=== PATIENT | female | born 1995 | race Caucasian/White ===

== ENCOUNTER 2018-09-14 14:00 | Emergency (ER) | payer MEDICAID, SELFPAY ==
[2018-09-14 14:05] VITALS: BP 113/73; PULSE 84; RESP 16; TEMP 36.6; O2SAT 98
--- NOTE | 2018-09-14 14:12 | W.ED.GENAD ---
Discharge Plan Disposition Patient Disposition: HOME Condition: Good Discharge Details Chief Complaint: RespSymp Clinical Impression: Congestion of nasal sinus, URI (upper respiratory infection) Primary Care Provider: Scottie Kimbrough ED Provider: Donovan Dow Home Meds and New Rx's Prescriptions: New fluticasone furoate 27.5 mcg/actuation spray,suspension 2 spray ALEJANDRA DAILY Qty: 9.1 RF: 0 loratadine [Claritin] 10 mg tablet 10 mg PO DAILY Qty: 20 RF: 0 amoxicillin 500 mg capsule 500 mg PO BID Qty: 20 RF: 0 Discharge Instructions Instructions: Upper Respiratory Infection (ED) Additional Instructions: Please take the nasal spray, and the Claritin as directed. Please continue to use your home [place] pot as often as possible. Please hold off on taking the antibiotic unless you do not notice improvement of your symptoms over the next 48 hours. If you notice any worsening of your symptoms, or any new symptoms such as vomiting, diarrhea, fever, chills, shortness of breath, chest pain, numbness, weakness, or fainting , please return immediately to the emergency department for reevaluation. Please follow up with your primary care provider as soon as possible for reassessment and reevaluation. As always, it was a pleasure participating in your medical care today. Referrals: Scottie Kimbrough PA [Primary Care Provider] - Medical Decision Making This is a pleasant 22-year-old male who presents with signs and symptoms consistent for sinusitis and mild upper respiratory infection. She has mild cough that only occurred today, as well as congestion in her nose. Minimal sore throat, no difficulty swallowing whatsoever. No fever or chills. Physical exam demonstrates no significant redness in the oropharynx, strep test was questionably positive with an extremely thin and difficult to see line. However I feel that her signs and symptoms are inconsistent with notable strep throat. She may very well be a carrier. Lung sounds are clear, vital signs are reassuring. Her signs and symptoms are clinically inconsistent with community-acquired pneumonia, peritonsillar abscess, venous sinus thrombosis. Signs and symptoms are consistent with mild sinusitis. We will prescribe an antibiotic, however with the recommendation that she hold off and that she does not have resolution of her symptoms in the next 24-48 hours as I feel her signs and symptoms more likely consistent with a viral etiology. We discussed red flags which to return the patient understands. I have extensively reviewed the treatment plan and discharge instructions with the patient. I have addressed all patient concerns at this time. The patient was made aware of what symptoms to monitor for that would warrant a return to the emergency department. Discussed the plan with the patient, they demonstrate verbal understanding and agreement with our assessment and plan at this time. HPI General Date/Time Provider Initiated Documentation: 09/14/18 14:03. HPI Narrative: This is a 22-year-old female with no past medical history except for chronic sinus infections who presents today for evaluation of nasal congestion. She states it is been going on for the last 2 weeks. She denies any tobacco use. She does use an occasional [place] pot but has not for quite some time. This morning she noticed that she had some mild associated cough when she woke up but this is resolved. She admits to minimal pressure in the front of her face. Some congestion in her nose. She denies any systemic symptoms of fever chills vomiting diarrhea chest pain shortness of breath numbness tingling or weakness. She denies any IV or illicit drug use. She denies any history of HIV. She denies any modifying or relieving factors. She has no other additional complaints at this time. Patient denies any recent surgeries. Related Data Home Medications Medication Instructions Recorded Confirmed amoxicillin 500 mg PO BID #20 cap 09/14/18 fluticasone furoate 2 spray ALEJANDRA DAILY #9.1 ml 09/14/18 loratadine [Claritin] 10 mg PO DAILY #20 tab 09/14/18 Previous Rx's Medication Instructions Recorded amoxicillin 500 mg PO BID #20 cap 09/14/18 fluticasone furoate 2 spray ALEJANDRA DAILY #9.1 ml 09/14/18 loratadine [Claritin] 10 mg PO DAILY #20 tab 09/14/18 Allergies Allergy/AdvReac Type Severity Reaction Status Date / Time No Known Allergies Allergy Unverified 09/14/18 14:16 General Stated Complaint: RespSymp IGNACIO: 4 Review of Systems Review of Systems All systems reviewed & are unremarkable except as noted in HPI and below PFSH Social History Smoking/Tobacco Use Status: Never Exam Narrative Exam Narrative: 1.Const: Well-nourished, Well-developed, appearing stated age 2.Eyes: PERRL, no conjunctival injection, and symmetrical lids. 3.ENT: Atraumatic external nose and ears. Moist MM. Neck: Symmetric, trachea midline, No thyromegaly. Minimal cerumen in the ear canals bilaterally. Minimal tenderness on percussion of the maxillary sinuses. Mild congestion in the nares. No erythema in the posterior oropharynx, no evidence of tonsillar exudates, tender anterior cervical lymphadenopathy, mass, peritonsillar abscess, or other significant abnormality. No signs of airway compromise. 4.CVS: +S1/S2, No murmurs or gallops. Peripheral pulses 2+ and equal in all extremities. Brisk capillary refill in all extremities. 5.RESP: Unlabored respiratory effort. Clear to auscultation bilaterally. No wheezes rales or rhonchi 6.GI: Soft, Nontender/Nondistended, No hepatosplenomegaly. No guarding or rebound. 7.MSK: Normocephalic/Atraumatic, Extremities w/o deformity or ttp No cyanosis or clubbing, Normal movement of all extremities 8.Skin: Warm, Dry. No rashes or lesions. 9.Neuro: sales representative II-XII grossly intact. Sensation grossly intact, no focal neurologic deficits. 10.Psych: (AAO) x3. Appropriate mood and affect Course Vital Signs Temperature 36.6 C 09/14/18 14:05 Pulse 84 09/14/18 14:05 Respiratory Rate 16 09/14/18 14:05 Blood Pressure 113/73 09/14/18 14:05 Pulse Oximetry 98 09/14/18 14:05 Temperature 36.6 C 09/14/18 14:05 Temperature Source Temporal Artery Scan 09/14/18 14:05 Pulse 84 09/14/18 14:05 Respiratory Rate 16 09/14/18 14:05 Blood Pressure 113/73 09/14/18 14:05 Blood Pressure Position Sitting 09/14/18 14:05 Pulse Oximetry 98 09/14/18 14:05 Oxygen Delivery Method Room Air 09/14/18 14:05 Oxygen Flow Rate 0 09/14/18 14:05 Pain Level 0 09/14/18 14:05
== END 2018-09-14 14:50 | disposition home or self-care (01) ==
PROVIDERS: Emergency Provider Student in an Organized Health Care Education/Training Program; PCP Physician Assistant Medical
DX: J06.9 Acute upper respiratory infection, unspecified (principal)
CPT/HCPCS: 87880; 99282

== ENCOUNTER 2018-11-24 07:24 | Emergency (ER) | payer MEDICAID, SELFPAY ==
[2018-11-24 07:32] VITALS: BP 109/83; PULSE 84; RESP 16; TEMP 36.7; O2SAT 100
--- NOTE | 2018-11-24 08:07 | ED.GENADUL_ITS ---
Discharge Plan Disposition Patient Disposition: HOME Condition: Improving Discharge Details Chief Complaint: Nausea/Vomit/Diar Clinical Impression: Gastroenteritis Primary Care Provider: Scottie Kimbrough ED Provider: Junior Antonio Home Meds and New Rx's Prescriptions: New ondansetron HCl [Zofran] 4 mg tablet 4 mg PO QID PRN (Reason: nausea and vomiting) Qty: 10 RF: 0 No Action loratadine [Claritin] 10 mg tablet 10 mg PO DAILY Qty: 20 RF: 0 Discharge Instructions Instructions: Gastroenteritis (ED) Additional Instructions: Home to rest today. Small, frequent sips of fluids to maintain hydration. May use Zofran, as prescribed, as needed for nausea. May slowly advance a bland diet. Return if you develop a fever, recurrent/persistent vomiting, abdominal pain, or any other acute concern Medical Decision Making Healthy 23-year-old female presents from home complaining of the abrupt onset of 400 hours of nausea and vomiting with 2 significant episodes of this. There was nonbilious nonbloody emesis. She denied a fever or diarrhea. Some suspicious food contacts at home. Afebrile and well-appearing, dehydrated in appearance. Abdomen exam is benign. IV placed, given antiemetics, screening laboratories obtained and patient given 2 liters of fluid. Lab reassuring without significant abnormality. Patient subsequently had recurrent vomiting and abdominal discomfort, referred for CT which reveals ileal colitis, consistent with her presentation. Please see formal report. Following parenteral fluids, the patient able to take liquids by mouth. Most consistent with a gastroenteritis. Discussed home management, follow-up, return precautions with the patient. Will offer antiemetic for home. She is stable and improved. Lab Data Lab results reviewed: Yes I reviewed the patient's lab results. Laboratory Results - last 24 hr 11/24/18 11/24/18 08:24 08:24 WBC 8.96 RBC 4.23 Hgb 13.2 Hct 38.0 MCV 89.8 MCH 31.2 MCHC 34.7 RDW 12.0 Plt Count 208 MPV 10.0 Immature Gran % 0.1 Neutrophils % 85.2 Lymphocytes % 6.8 Monocytes % 7.4 Eosinophils % 0.4 Basophils % 0.1 Absolute Neutrophils 7.63 H Absolute Lymphocytes 0.61 L Absolute Monocytes 0.66 Absolute Eosinophils 0.04 Absolute Basophils 0.01 Sodium 143 Potassium 3.6 Chloride 105 Carbon Dioxide 29.8 Anion Gap 8.2 BUN 14 Creatinine 0.64 Estimated GFR/1.73 m2 >= 60.00 Glucose 93 Calcium 8.2 L Magnesium 1.6 L Total Bilirubin 1.7 H AST 15 ALT 19 Alkaline Phosphatase 53 Total Protein 7.1 Albumin 4.0 HPI General Mode of arrival: ambulatory . Date/Time Provider Initiated Documentation: 11/24/18 07:45 . Limitations to Documentation: no limitations . Information obtained by: patient . History of Present Illness 23 year old F presents to the emergency department with the chief complaint of Nausea and vomiting 4 hours time; no blood, described as moderate, Quality is described as dull, and is localized to the abdomen. Patient reports no radiation. Patient started experiencing this hour(s) and it has been intermittent. No relieving factors improve symptom(s), No exacerbating factors reported . Patient notes no other symptoms.. Patient did receive the following treatments prior to arrival, none Related Data Home Medications Medication Instructions Recorded Confirmed loratadine [Claritin] 10 mg PO DAILY #20 tab 09/14/18 11/24/18 ondansetron HCl [Zofran] 4 mg PO QID PRN #10 tab 11/24/18 Previous Rx's Medication Instructions Recorded loratadine [Claritin] 10 mg PO DAILY #20 tab 09/14/18 ondansetron HCl [Zofran] 4 mg PO QID PRN #10 tab 11/24/18 Allergies Allergy/AdvReac Type Severity Reaction Status Date / Time No Known Allergies Allergy Unverified 11/24/18 07:41 General Stated Complaint: Nausea/Vomit/Diar IGNACIO: 3 Review of Systems Review of Systems 6 systems reviewed and otherwise negative [facility] Social History Smoking and Tabacco status: Never Exam Narrative Exam Narrative: GEN: awake, alert, oriented 3. Pleasant, well groomed, interactive. HEAD: Normocephalic, atraumatic ENT: Mucous membranes dry, oropharynx unremarkable, External ear exam unremarkable EYES: PERRL, EOMI NECK: Full ROM, no ED, no menigismus CHEST/RESP: Nontender, clear to auscultation bilateral, no wheeze/rhonchi/rales CARDIOVASCULAR: RRR, no murmur, rub shy. 2+ Rad pulse bilateral ABDOMEN: Soft, nontender, no mass. +Bowel sounds EXT: Full ROM, no edema, no rash Neuro: Grossly normal neurologic exam, conversant, interactive. Psych: Speech fluent, thoughts congruent, affect normal Course Vital Signs Temperature 36.7 C 11/24/18 07:32 Pulse 84 11/24/18 07:32 Respiratory Rate 16 11/24/18 07:32 Blood Pressure 109/83 11/24/18 07:32 Pulse Oximetry 100 11/24/18 07:32 Temperature 36.7 C 11/24/18 07:32 Temperature Source Temporal Artery Scan 11/24/18 07:32 Pulse 84 11/24/18 07:32 Respiratory Rate 16 11/24/18 07:32 Respiratory Effort Non-Labored 11/24/18 07:39 Blood Pressure 109/83 11/24/18 07:32 Blood Pressure Position Sitting 11/24/18 07:32 Pulse Oximetry 100 11/24/18 07:32 Oxygen Delivery Method Room Air 11/24/18 07:32 Oxygen Flow Rate 0 11/24/18 07:32 Pain Level 3 11/24/18 07:32
[2018-11-24] MEDS: Normal Saline 1,000 ML 1000 ML IV ×2 (08:24→09:11)
[2018-11-24] MEDS: Ondansetron 4 MG/2 ML VIAL IVP (08:26)
[2018-11-24 08:39] LABS: Abs Immature Grans 0.01 k/cumm (0.0-0.09); Absolute Basophil Count 0.01 k/cumm (0.0-0.2); Absolute Eosinophil Count 0.04 k/cumm (0.0-0.7); Absolute Lymphocyte Count 0.61 k/cumm (1.2-3.4); Absolute Monocyte Count 0.66 k/cumm (0.11-0.7); Absolute Neutrophil Count 7.63 k/cumm (1.2-6.7); Basophils % 0.1; Eosinophils % 0.4; HGB 13.2 g/dL (12.0-15.5); Immature Grans % 0.1; Lymphocytes % 6.8; Mean Corp. HGB Concentration 34.7 g/dL (32.0-36.0); Mean Corpuscular Hemoglobin 31.2 pg (27.0-33.0); Mean Corpuscular Volume 89.8 fL (80-95); Monocytes % 7.4; Neutrophils % 85.2; Platelet Count 208 x1000/uL (130-400); RBC 4.23 m/cumm (4.00-5.20); White Blood Cell Count 8.96 k/cumm (4.4-10.8)
[2018-11-24 08:46] LABS: ALT 19 U/L (12-78); AST 15 U/L (15-37); Alkaline Phosphatase 53 U/L (46-116); Anion Gap 8.2 mmol/L (3-11); BUN 14 mg/dL (7-18); Bilirubin, Total 1.7 mg/dL (0.2-1.0); CO2 29.8 mmol/L (21.0-32.0); CREATININE 0.64 mg/dL (0.55-1.02); Calcium 8.2 mg/dL (8.5-10.1); Chloride 105 mmol/L (98-107); Glucose 93 mg/dL (70-100); Magnesium 1.6 mg/dL (1.8-2.4); Potassium 3.6 mmol/L (3.5-5.1); Sodium 143 mmol/L (136-145); Total Protein 7.1 g/dL (6.4-8.2)
[2018-11-24] MEDS: Ondansetron O.D.T. 4 MG TABEF PO (11:13)
--- NOTE | 2018-11-24 11:55 | DI.CT_ITS ---
SYMPTOMS/DIAGNOSIS: ABDOMINAL PAIN, VOMITING CT OF THE ABDOMEN AND PELVIS: Images were performed from the lung bases through the ischial tuberosities after IV and without oral contrast. The exam is mildly limited by motion. Lung bases are clear. The liver and the gallbladder, spleen, pancreas, kidneys and adrenals are unremarkable. The appendix appears normal. There is fluid in the cecum and distal ileum and a question of mild wall thickening, which could indicate colitis. The transverse colon is unremarkable. There is stool in the descending and rectosigmoid. The bladder, uterus and left ovary are unremarkable. There is an involuting corpus luteum cyst of the right ovary. There is a small amount of fluid in the cul-de-sac and near the right ovary. IMPRESSION: 1. Fluid-filled distal ileum and cecum may indicate colitis and ileitis. 2. Involuting right corpus luteum cyst with adjacent fluid.
[2018-11-24 11:57] VITALS: BP 111/67; PULSE 125; RESP 16; TEMP 36.6; O2SAT 100
[2018-11-24] MEDS: Lactated Ringers 1,000 ML 1000 ML IV (12:07)
[2018-11-24] MEDS: Omnipaque 350 MG/ML 100 ML BTL IV (13:35)
--- NOTE | 2018-11-24 14:14 | DI.VRAD_ITS ---
EXAM: CT Abdomen and Pelvis With Contrast EXAM DATE/TIME: 11/24/2018 11:56 AM CLINICAL HISTORY: 23 years old, female; Signs and symptoms; Other: Abd pain, vomiting TECHNIQUE: Axial computed tomography images of the abdomen and pelvis with intravenous contrast. All CT scans at this facility use at least one of these dose optimization techniques: automated exposure control; mA and/or kV adjustment per patient size (includes targeted exams where dose is matched to clinical indication); or iterative reconstruction. Coronal and sagittal reformatted images were created and reviewed. CONTRAST: Contrast Material: 100 ml of omnipaque 350; Contrast Route: iv COMPARISON: No relevant prior studies available. FINDINGS: Lower thorax: No acute findings. ABDOMEN: Liver: Mild nonspecific periportal edema. Otherwise, the liver is unremarkable. No mass. Gallbladder and bile ducts: Unremarkable.No calcified stones. No ductal dilation. Pancreas: Unremarkable. No ductal dilation. Spleen: Unremarkable. No splenomegaly. Adrenals: Unremarkable. No mass. Kidneys and ureters: Unremarkable. No hydronephrosis. Stomach and bowel: Mild circumferential wall thickening and enhancement involving multiple loops of ileum and the cecum. There is low-density fluid within these abnormal loops of bowel. Moderate amount of solid stool and gas in the distal colon to the rectum. No bowel obstruction or perforation. Appendix: Normal appendix. PELVIS: Bladder: Unremarkable as visualized. Reproductive: 2 cm right ovarian cystic structure with with mildly irregular thickened enhancing wall, typical of a ruptured/involuting corpus luteal cyst. ABDOMEN and PELVIS: Intraperitoneal space: Small amount of free fluid in the right hemipelvis, nonspecific, but usually physiologic in young women and related to ovulation. No abscess. No free air. Bones/joints: No fracture. No dislocation. Soft tissues: Unremarkable. Vasculature: Unremarkable. No abdominal aortic aneurysm. Lymph nodes: Unremarkable. No enlarged lymph nodes. IMPRESSION: 1. Mild inflammatory or infectious ileocolitis. 2. 2 cm probable ruptured/involuting right ovarian corpus luteal cyst. Dictated and Authenticated by: Ema Cordero MD. Ordering:ADRIANA Pacheco MD
[2018-11-24 14:30] VITALS: BP 103/47; PULSE 75; TEMP 37.2; O2SAT 100
[2018-11-24 14:40] VITALS: BP 103/47; PULSE 75; RESP 16; TEMP 37.2; O2SAT 100
== END 2018-11-24 14:42 | disposition home or self-care (01) ==
PROVIDERS: Emergency Provider Emergency Medicine; PCP Physician Assistant Medical
DX: K52.9 Noninfective gastroenteritis and colitis, unspecified (principal)
CPT/HCPCS: 36415; 80053; 81025; 96361; 96365; 96375; 99285; 74177; 83735; 85025; 99284; J2405; J3490

== ENCOUNTER 2018-11-29 11:57 | Outpatient (REF) | payer MEDICAID, SELFPAY ==
[2018-11-29 19:05] LABS: Abs Immature Grans 0.01 k/cumm (0.0-0.09); HCT 36.8 % (36.0-46.0); HGB 12.6 g/dL (12.0-15.5); Mean Corp. HGB Concentration 34.2 g/dL (32.0-36.0); Mean Corpuscular Hemoglobin 30.3 pg (27.0-33.0); Mean Corpuscular Volume 88.5 fL (80-95); Mean Platelet Volume 10.5 fL (8.0-11.0); Platelet Count 196 x1000/uL (130-400); RBC 4.16 m/cumm (4.00-5.20); RBC Distribution Width 11.7 % (11.7-14.6); White Blood Cell Count 2.96 k/cumm (4.4-10.8)
[2018-11-29 19:24] LABS: ALT 22 U/L (12-78); AST 17 U/L (15-37); Albumin 4.1 g/dL (3.4-5.0); Alkaline Phosphatase 46 U/L (46-116); Bilirubin, Total 0.9 mg/dL (0.2-1.0); Total Protein 6.8 g/dL (6.4-8.2)
[2018-11-29 19:40] LABS: Bilirubin, Direct 0.21 mg/dL (0.00-0.20)
[2018-11-29 20:40] LABS: Absolute Neutrophil Count 1.36 k/cumm (1.2-6.7); Atypical Lymphocytes % 5
[2018-11-29 20:41] LABS: Diff Comment Manual Differential; RBC Morphology Normal
== END 2018-11-29 12:17 ==
LOC: NCHCN 11:57
PROVIDERS: PCP Physician Assistant Medical; Visit Provider Physician Assistant Medical
DX: K52.9 Noninfective gastroenteritis and colitis, unspecified (principal); E80.6 Other disorders of bilirubin metabolism
CPT/HCPCS: 80076; 85025

== ENCOUNTER 2019-01-14 10:16 | Outpatient (REF) | payer MEDICAID, SELFPAY ==
--- NOTE | 2019-01-14 | PAPFT_PTH ---
PATIENT: Alivia Sim [id number] AGE/SX: 23/F ROOM: RE01/14/[address]: Scottie Kimbrough : 1995 BED: DIS: 01/14/2019 SPEC #: [id number] RECD: 01/14/19 20:51 STATUS: DEBBIE MARLOW #: [id number] EARNEST: 01/14/19 00:[address]: Scottie Kimbrough DEPT: [facility] Cytology RECD BY: Luana Alcantara Tissues: 1 - CX/ENDOCX FOR PAP SMEARS Procedures: PAP THIN PREP/[facility] Screening Comments: [id number]
[2019-01-14 21:28] LABS: ALT 24 U/L (12-78); AST 17 U/L (15-37); Albumin 4.5 g/dL (3.4-5.0); Alkaline Phosphatase 57 U/L (46-116); Bilirubin, Direct 0.28 mg/dL (0.00-0.20); Bilirubin, Total 1.5 mg/dL (0.2-1.0); Total Protein 7.3 g/dL (6.4-8.2)
[2019-01-16 15:23] LABS: Chlamydia Result Negative; GC Result Negative; Specimen Description CERVIX
== END 2019-01-14 10:36 ==
LOC: NCHCN 10:16
PROVIDERS: PCP Physician Assistant Medical; Visit Provider Physician Assistant Medical
DX: Z11.3 Encounter for screening for infections with a predominantly sexual mode of transmission (principal); Z12.4 Encounter for screening for malignant neoplasm of cervix; E80.6 Other disorders of bilirubin metabolism
CPT/HCPCS: 80076; 87491; 87591; 88142

== ENCOUNTER 2020-08-10 14:54 | Outpatient (REF) | payer MEDICAID, SELFPAY ==
[2020-08-15 14:39] LABS: SARS-CoV-2 RNA Undetected (Undetected); SARS-CoV-2 Specimen Source Nasal
== END 2020-08-10 15:14 ==
LOC: NCHCN 14:54
PROVIDERS: PCP Physician Assistant Medical; Visit Provider Physician Assistant Medical
DX: Z00.8 Encounter for other general examination (principal); Z11.59 Encounter for screening for other viral diseases
CPT/HCPCS: U0003

== ENCOUNTER 2021-03-22 03:29 | Outpatient (CLI) | payer MEDICAID, SELFPAY ==
--- NOTE | 2021-03-22 | DI.RAD_ITS ---
Exam(s) XR CHEST 2V PA LATERAL EXAM: XR CHEST 2V PA LATERAL CLINICAL HISTORY: SOB,R06.02 TECHNIQUE: 2D digital imaging was performed. COMPARISON: No exams were available for comparison FINDINGS: The heart is not enlarged. The lungs are clear and well expanded. No pleural effusion seen. Mediastin al contours appear intact. IMPRESSION: Normal chest. RADIATION DOSE DELIVERED: Total DLP
--- NOTE | 2021-03-22 11:53 | W.PFT ---
Date of service: 03/22/21 Time of Service: 10:08 Pulmonary Function Test Result Interpretation Spirometry: No evidence of obstructive airways disease. No bronchodilator testing was carried out Lung Volumes: No restriction Diffusion Capacity: Borderline mildly reduced, even when corrected to alveolar volume. However this represents a suboptimal patient effort. This could just be an effort related phenomenon. Airway Pressure: Normal Clinical Correlation therefore is recommended.
[2021-03-22] MEDS: Methacholine 100 MG VIAL IH (12:31)
[2021-03-22] MEDS: Albuterol HFA 18 GM 200 PUFF INH IH (12:31)
[2021-03-22] MEDS: Inhaler, Assist Device 1 EACH MC (12:31)
--- NOTE | 2021-03-24 18:36 | W.PFT ---
Date of service: 03/22/21 Time of Service: 10:08 Pulmonary Function Test Result Clinical Correlation therefore is recommended. Methacholine Challnege Test Date of Service Date of Service: . 03/22/2021 Note Good patient effort, after normal spirometry, methacholine challenge testing was carried out up to methacholine concentration of 16 mg/mL. At that point the patient had a 15% drop in FEV1. Impression Negative methacholine challenge
== END 2021-03-22 03:30 | disposition home or self-care (01) ==
LOC: RT 03:32
PROVIDERS: PCP Physician Assistant Medical; Visit Provider Physician Assistant Medical
DX: R06.02 Shortness of breath (principal)
CPT/HCPCS: 94060; 94726; 94729; 95070; 71046; 94010; J7674

== ENCOUNTER 2022-02-21 13:52 | Outpatient (REF) | payer MEDICAID, SELFPAY ==
--- NOTE | 2022-02-21 13:40 | PAPFT_PTH ---
PATIENT: Alivia Sim LOC: [facility]#:[id number] AGE/SX: 26/F ROOM: RE02/21/[address]: Scottie Kimbrough : 1995 BED: DIS: 02/21/2022 SPEC #: [id number] RECD: 02/21/22 18:31 STATUS: DEBBIE REAmanda #: [id number] EARNEST: 02/21/22 13:[address]: Scottie Kimbrough DEPT: [facility] Cytology RECD BY: Luana Alcantara Tissues: 1 - CX/ENDOCX FOR PAP SMEARS Procedures: PAP THIN PREP/[facility] Screening Comments: [id number]
== END 2022-02-21 13:53 | disposition home or self-care (01) ==
LOC: NCHCN 13:52
PROVIDERS: PCP Physician Assistant Medical; Visit Provider Physician Assistant Medical
DX: Z12.4 Encounter for screening for malignant neoplasm of cervix (principal); Z01.419 Encounter for gynecological examination (general) (routine) without abnormal findings
CPT/HCPCS: 88142

== ENCOUNTER 2022-08-26 16:49 | Emergency (ER) | payer MEDICAID, SELFPAY ==
[2022-08-26 16:55] VITALS: BP 121/57; PULSE 69; RESP 18; TEMP 36.6; O2SAT 100
--- NOTE | 2022-08-26 19:15 | DI.RAD_ITS ---
Exam(s) XR CHEST 2V PA LATERAL EXAM: XR CHEST 2V PA LATERAL CLINICAL HISTORY: Back and rib pain TECHNIQUE: 2D digital imaging was performed. COMPARISON: CR XR CHEST 2V PA LATERAL from 03/22/2021 FINDINGS: HEART: Normal size. Aorta: PULMONARY VASCULATURE: Normal. LUNGS: Clear. PLEURAL SPACE: No pleural effusion or pneumothorax. BONE:Unremarkable for age. IMPRESSION: No acute abnormality. DATA REPOSITORY: RADIATION DOSE DELIVERED:
--- NOTE | 2022-08-26 19:15 | DI.RAD_ITS ---
Exam(s) XR LUMBAR SPINE COMPLETE EXAM: XR LUMBAR SPINE COMPLETE CLINICAL HISTORY: Back pain. TECHNIQUE: 2D digital imaging was performed. Five views. COMPARISON: No exams were available for comparison FINDINGS: BONES: No fracture or destructive lesion. Vertebral body heights are maintained. No facet hypertroph y identified. DISKS: Intervertebral disc spaces are maintained. ALIGNMENT: Lumbar spinal alignment is within normal limits. SOFT TISSUE: Normal. IMPRESSION: Unremarkable radiographs of the lumbar spine. DATA REPOSITORY: RADIATION DOSE DELIVERED:
--- NOTE | 2022-08-26 19:19 | ED.GENADUL_ITS ---
Discharge Plan Disposition Patient Disposition: Home Condition: Stable Discharge Details Clinical Impression: Musculoskeletal strain Primary Care Provider: Scottie Kimbrough ED Provider: Roxana Sharpe Home Meds and New Rx's Prescriptions: No Action loratadine [Claritin] 10 mg tablet 10 mg PO DAILY Qty: 20 0RF Discharge Instructions Instructions: Back Pain (ED) Additional Instructions: X-rays are within normal limits. Follow up with primary care provider in 3-5 days. Return to ED sooner if any worsening or concerns. Increase oral fluids. Please take Tylenol or Ibuprofen with food every 4-6 hours as needed for pain and swelling. Alternate ice and heat, please take the Flexeril as prescribed. May make you drowsy no driving. Referrals: Scottie Kimbrough PA [Primary Care Provider] - 5 days Medical Decision Making 26-year-old female presents to the ER with a chief complaint of generalized back pain which she reports is worsened over the last few days. Does radiate around to her bilateral ribs, and into her tailbone. She denies any radiation of pain into her legs denies any loss of bowel or bladder control or saddle anesthesia. She denies any known injury. Denies any heavy lifting. No fever chills cough or problems urinating. She states that she thinks that she has been sleeping on a bad mattress for the last few days and has pain with movement. Urine preg, urinalysis, chest x-ray and L-spine x-ray ordered Flexeril and Tylenol. X-ray is within normal limits. Urinalysis was not obtained unable to rule out UTI as cause for symptoms. Given instructions on home care was given Flexeril to go and instructed to follow-up. Strict return instructions discussed. This text was generated using [employer] system master dictation system, please disregard any oddities of phrase or misspellings. Imaging Data Radiologic Study: Imaging: X-Ray Radiologist's impression: Exam: XR Lumbosacral Spine COMPARISON: CT ABDOMEN PELVIS W 11/24/2018 1:16 PM FINDINGS: Bones/joints: Normal. No acute fracture. Normal alignment. Soft tissues: Unremarkable. IMPRESSION: No evidence for acute abnormality. Exam: XR Chest FINDINGS: Lungs: Unremarkable. No consolidation. Pleural spaces: Unremarkable. No pleural effusion. No pneumothorax. Heart/Mediastinum: Unremarkable. No cardiomegaly. Bones/joints: Unremarkable. IMPRESSION: No evidence for acute abnormality in the chest. Thank you for allowing us to participate in the care of your patient. Dictated and Authenticated by: Ernestine Andrade MD Sign Out No HPI General Mode of arrival: ambulatory . Date/Time Provider Initiated Documentation: 08/26/22 18:16 . Limitations to Documentation: no limitations . Information obtained by: patient, RN notes reviewed and old records reviewed . HPI Narrative: 26-year-old female presents to the ER with a chief complaint of generalized back pain which she reports is worsened over the last few days. Does radiate around to her bilateral ribs, and into her tailbone. She denies any radiation of pain into her legs denies any loss of bowel or bladder control or saddle anesthesia. She denies any known injury. Denies any heavy lifting. No fever chills cough or problems urinating. She states that she thinks that she has been sleeping on a bad mattress for the last few days and has pain with movement. Has been taking ibuprofen for the pain which is done little to nothing to help. Related Data Home Medications Medication Instructions Recorded Confirmed loratadine 10 mg tablet (Claritin) 10 mg PO DAILY #20 tabs 09/14/18 08/26/22 Previous Rx's Medication Instructions Recorded loratadine 10 mg tablet (Claritin) 10 mg PO DAILY #20 tabs 09/14/18 Allergies Allergy/AdvReac Type Severity Reaction Status Date / Time No Known Allergies Allergy Unverified 08/26/22 16:58 General Stated Complaint: Nk/Back Pain IGNACIO: 4 Review of Systems All systems reviewed & are unremarkable except as noted in HPI and below Musculoskeletal Musculoskeletal: Reports as per HPI, Reports back pain, Denies numbness, Denies radiating pain into limb and Reports stiffness Neurologic Neurologic: Denies numbness PFSH All Active Problems (Updated 08/26/22 @ 20:41 by Roxana Sharpe NP) Musculoskeletal strain (Acute) Social History Smoking/Tobacco Use Status: Never Smoking risk assessment performed?: Yes Alcohol Intake: current Alcohol Intake frequency: holidays/special occasions only Drug use: Never Substance use type: does not use Do you feel safe at home: Yes Do you feel safe in your relationship?: Yes Exam Narrative Exam Narrative: Constitutional: Alert and oriented x3. Appears stated age. Normal body habitus. Head: Normocephalic, no trauma. Eyes: Pupils PERRL, Red reflex noted, EOM's intact. Eyelids symmetrical without lesions, discharge, or swelling. Chest: RRR, Normal S1, S2, distal pulses intact. Resp: Lungs clear to auscultation bilaterally, no wheezes, rales, or rhonchi. Abdomen: Soft, non-distended, Normoactive bowel sounds all 4 quads. Musculoskeletal: Normal gait, 5/5 strength to all four extremities. Skin: No suspicious rashes or lesions. Capillary refill less than 2 sec. Neurologic: Cranial nerves II-XII intact. Alert and oriented x 3. Motor: No deficits noted. Sensory: Intact bilaterally all 4 extremities. Reflexes: DTR's intact bilaterally.. Hematologic/Lymphatic: No ecchymosis, no lymphadenopathy. Course Vital Signs Vital signs: Vital Signs Temperature 36.6 C 08/26/22 16:55 Pulse 69 08/26/22 16:55 Respiratory Rate 18 08/26/22 16:55 Blood Pressure 121/57 L 08/26/22 16:55 Pulse Oximetry 100 08/26/22 16:55 Temperature 36.6 C 08/26/22 16:55 Temperature Source Temporal Artery Scan 08/26/22 16:55 Pulse 69 08/26/22 16:55 Respiratory Rate 18 08/26/22 16:55 Respiratory Effort Non-Labored 08/26/22 16:59 Blood Pressure 121/57 L 08/26/22 16:55 Blood Pressure Position Sitting 08/26/22 16:55 Pulse Oximetry 100 08/26/22 16:55 Oxygen Delivery Method Room Air 08/26/22 16:55 Oxygen Flow Rate 0 08/26/22 16:55
[2022-08-26] MEDS: Cyclobenzaprine 10 MG TAB PO (19:40)
[2022-08-26] MEDS: Acetaminophen 500 MG TAB PO (19:40)
--- NOTE | 2022-08-26 20:06 | DI.VRAD_ITS ---
PROCEDURE INFORMATION: Exam: XR Lumbosacral Spine Exam date and time: 08/26/2022 7:34 PM Age: 26 years old Clinical indication: Other: Back pain TECHNIQUE: Imaging protocol: Radiologic exam of the lumbosacral spine. Views: 4 or 5 views. COMPARISON: CT ABDOMEN PELVIS W 11/24/2018 1:16 PM FINDINGS: Bones/joints: Normal. No acute fracture. Normal alignment. Soft tissues: Unremarkable. IMPRESSION: No evidence for acute abnormality. Dictated and Authenticated by: Ernestine Andrade MD. Ordering:EVA Schmidt MD
--- NOTE | 2022-08-26 20:06 | DI.VRAD_ITS ---
PROCEDURE INFORMATION: Exam: XR Chest Exam date and time: 08/26/2022 7:30 PM Age: 26 years old Clinical indication: Other: Rib pain TECHNIQUE: Imaging protocol: Radiologic exam of the chest. Views: 2 views. COMPARISON: CR XR CHEST 2V PA LATERAL 03/22/2021 11:03 AM FINDINGS: Lungs: Unremarkable. No consolidation. Pleural spaces: Unremarkable. No pleural effusion. No pneumothorax. Heart/Mediastinum: Unremarkable. No cardiomegaly. Bones/joints: Unremarkable. IMPRESSION: No evidence for acute abnormality in the chest. Dictated and Authenticated by: Ernestine Andrade MD. Ordering:EVA Schmidt MD
[2022-08-26] MEDS: Cyclobenzaprine 10 MG TAB, 3 TABS/BTL PO (21:04)
--- NOTE | 2022-08-26 23:22 | NUR.NOTE ---
no urine obtained, unable to pee.Nursing Note:
== END 2022-08-26 21:04 | disposition home or self-care (01) ==
PROVIDERS: Emergency Provider Registered Nurse Emergency; PCP Physician Assistant Medical
DX: S39.012A Strain of muscle, fascia and tendon of lower back, initial encounter (principal); X58.XXXA Exposure to other specified factors, initial encounter
CPT/HCPCS: 81025; 99284; 71046; 72110; 81003

== ENCOUNTER 2022-09-13 15:39 | Outpatient (REF) | payer MEDICAID, SELFPAY ==
[2022-09-15 15:48] LABS: Influenza A RNA Result Negative (Negative); Influenza B RNA Result Negative (Negative); RSV RNA Result Negative (Negative)
== END 2022-09-13 15:40 | disposition home or self-care (01) ==
LOC: NCHCN 15:39
PROVIDERS: PCP Physician Assistant Medical; Visit Provider Nurse Practitioner Family
DX: R05.8 Other specified cough (principal)
CPT/HCPCS: 87631

== ENCOUNTER 2022-10-24 18:56 | Outpatient (REF) | payer MEDICAID, SELFPAY ==
[2022-10-24 19:13] LABS: HCT 37.9 % (36.0-46.0); HGB 12.6 g/dL (11.2-15.7); MCH 30.8 pg (27.0-33.0); MCHC 33.2 % (32.0-36.0); MCV 93 fL (80-95); MPV 10.3 fL (8.0-11.0); Platelet Count 241 10^3/uL (130-400); RBC 4.09 10^6/uL (3.93-5.22); RDW 11.9 % (11.7-14.6); RDW-SD 40.5 fL; WBC 6.04 10^3/uL (4.4-10.8)
[2022-10-24 19:48] LABS: Anion Gap 5.7 mmol/L (3-11); BUN 12 mg/dL (7-18); CO2 29.3 mmol/L (21.0-32.0); CREATININE 0.6 mg/dL (0.55-1.02); Calcium 9.4 mg/dL (8.5-10.1); Chloride 104 mmol/L (98-107); Estimated GFR 126.09 (mL/min/1.73m2); Glucose 91 mg/dL (74-106); Magnesium 1.9 mg/dL (1.8-2.4); Potassium 4.2 mmol/L (3.5-5.1); Sodium 139 mmol/L (136-145); TSH 1.26 uIU/mL (0.36-3.74)
[2022-10-24 20:02] LABS: Vitamin D 25 Total 30.4 ng/mL (30-100)
== END 2022-10-24 18:57 | disposition home or self-care (01) ==
LOC: NCHCN 18:56
PROVIDERS: PCP Physician Assistant Medical; Visit Provider Nurse Practitioner Family
DX: R53.83 Other fatigue (principal); G47.09 Other insomnia; M54.6 Pain in thoracic spine; E83.51 Hypocalcemia
CPT/HCPCS: 80048; 82306; 85027; 83735; 84443

== ENCOUNTER 2022-11-22 15:47 | Outpatient (REF) | payer MEDICAID, SELFPAY ==
[2022-11-29 10:00] LABS: Prothrombin G20210A Mutation Negative (Negative)
== END 2022-11-22 15:48 | disposition home or self-care (01) ==
LOC: NCHCN 15:47
PROVIDERS: PCP Physician Assistant Medical; Visit Provider Physician Assistant Medical
DX: Z86.2 Personal history of diseases of the blood and blood-forming organs and certain disorders involving the immune mechanism (principal)
CPT/HCPCS: 81240

== ENCOUNTER → 2023-05-28 01:17 | Outpatient (CLI) | payer MEDICAID, SELFPAY ==
--- NOTE | 2023-05-28 08:30 | DI.CT_ITS ---
Exam(s) CT SINUS WO EXAM: CT SINUS WO CLINICAL HISTORY: CHRONIC SINUSITIS, J32.9. Evaluate for sinusitis. TECHNIQUE: Imaging Protocol: Axial computed tomography images with coronal and sagittal reformatted images were created and reviewed. COMPARISON: No exams were available for comparison FINDINGS: AXIAL IMAGES: Frontal sinuses: Normally aerated. Ethmoid air cells: Normally aerated. Maxillary sinuses: Developmental asymmetry of the maxillary sinuses, right smaller than left. Minima l mucosal thickening floor right maxillary sinus. Sphenoid sinus: Normally aerated. Ostiomeatal complexes: Patent. Osseous nasal septum: Deviated toward the right. Nasal cavity clear. Visualized regional soft tissues: No acute findings. Orbits: Unremarkable. Bones: Unremarkable. Mastoid Air Cells: Normally aerated. IMPRESSION: Minimal mucosal thickening floor right maxillary sinus. RADIATION DOSE DELIVERED: 117.46mGy.cm Total DLP DATA REPOSITORY: All CT scans at this facility are submitted to the National Radiology Data Registry (NRDR) Dose Index Registry (DIR) with the [employer] (A[employer]). RADIATION OPTIMIZATION: All CT scans at this facility use at least one of these dose optimization te chniques: automated exposure control; mA and/or kV adjustment per patient size (includes targeted exa ms where dose is matched to clinical indication); or iterative reconstruction.
== END ==
PROVIDERS: PCP Physician Assistant Medical; Visit Provider Physician Assistant Medical
DX: J32.9 Chronic sinusitis, unspecified (principal)
CPT/HCPCS: 70486